=== PATIENT | male | born 1995 | race African-American/Black ===

== ENCOUNTER 2016-09-09 23:31 | Emergency (ER) | payer BC ==
--- NOTE | ~2016-09-09 | CR230 ---
[facility] A Service of [facility] RADIOLOGY TEXT RESULTS PATIENT: SUDHEER SNYDER LOCATION: [facility] : [birth year] UNIT #: [id number] AGE: [address]: Analia Sandoval APRN SEX: M ORDER DR: [id number] [facility] [address] [place], [place] [address] [id number] E MR#: [id number] Acc #: [id number] NAME: SUDHEER SNYDER : 1995 SEX: M STUDY DATE/TIME: 09/09/2016 00:43 UNIT: [facility] ROOM: STUDY DESCRIPTION: CR Shoulder Min 2 View Rt Attending Physician: Analia Sandoval A.P.R.N. Ordering Physician: Kaveh Gonzalez M.D. Primary Care Physician: No Primary Care Physician MEDICAL IMAGING REPORT This report is preliminary unless electronic signature is present EXAM Right shoulder 09/10 at 0043. INDICATIONS Shoulder pain for 1 day after lifting injury. FINDINGS Three views of the right shoulder were obtained. There is no fracture or dislocation. There is no AC joint separation. IMPRESSION Normal right shoulder. Dictated by... Kevyn Bateman Jr., M.D. THIS IS AN ELECTRONICALLY VERIFIED REPORT Kevyn Bateman Jr., M.D. at 09/10/2016 9:52 PM PHIL/ca TD: 09/10/2016 08:11 JOB #: [id number] MEDICAL IMAGING REPORT Page 1 of 1 COPY
== END 2016-09-10 02:18 | disposition home or self-care (01) ==
LOC: CED 23:31
DX: S46.911A Strain of unspecified muscle, fascia and tendon at shoulder and upper arm level, right arm, initial encounter (principal); F17.200 Nicotine dependence, unspecified, uncomplicated; X50.9XXA Other and unspecified overexertion or strenuous movements or postures, initial encounter; Y92.69 Other specified industrial and construction area as the place of occurrence of the external cause; Y99.0 Civilian activity done for income or pay
CPT/HCPCS: 73030; 99283